=== PATIENT | female | born 1955 | race Caucasian/White ===

== ENCOUNTER 2016-11-17 09:18 | Outpatient (CLI) | payer OTHER ==
[2016-11-17 10:18] LABS: ALT (SGPT) 13 U/L (0-55); AST (SGOT) 16 U/L (5-34); Albumin 4.6 g/dL (3.4-4.8); Alkaline Phosphatase 50 U/L (40-150); Anion Gap 16 mmol/L (10-20); BUN (Urea Nitrogen) 10 mg/dL (9.8-20.1); Bilirubin, Direct 0.1 mg/dL (0.1-0.3); Bilirubin, Total 0.3 mg/dL (0.2-1.2); Calc. Creatinine Clearance 0 mL/min (70-130); Calcium 10.3 mg/dL (7.8-10.44); Carbon Dioxide 27 mmol/L (23-31); Cardiac Risk 2.7 (Less than 4.5); Chloride 105 mmol/L (98-107); Cholesterol 163 mg/dL (< 200 Desired); Estimated GFR-MDRD 73; Glucose 107 mg/dL (80-115); HDL Cholesterol 60 mg/dL (>60 Neg Risk); LDL Cholesterol, Calculated 78 mg/dL; Potassium 4.4 mmol/L (3.5-5.1); Protein, Total 7.5 g/dL (5.8-8.1); Sodium 144 mmol/L (136-145); Triglycerides 125 mg/dL (Less than 150)
[2016-11-17 15:00] LABS: Mean Corpuscular HGB CONC 33.4 g/dL (32.0-36.0); Mean Corpuscular Hemoglobin 35.7 pg (27.0-31.0); Mean Platelet Volume 7.6 fL (7.4-10.4); Platelet Count 253 thou/uL (130-400); RBC Distribution Width 13.1 % (11.5-14.5); Red Blood Cell (RBC) Count 3.91 mill/uL (4.20-5.40)
[2016-11-17 15:03] LABS: Macrocytosis SLIGHT = 6-15 cells (100X) (0-5/hpf); PLT Morphology Comment Appears Adequate
== END 2016-11-17 09:19 | disposition home or self-care (01) ==
LOC: MADLABBHPM 09:18
PROVIDERS: ATTEND Family Medicine
DX: E03.9 Hypothyroidism, unspecified (principal); D75.89 Other specified diseases of blood and blood-forming organs; I10 Essential (primary) hypertension
CPT/HCPCS: 36415; 80048; 80061; 80076; 84443; 85025

== ENCOUNTER 2017-02-15 08:55 | Outpatient (CLI) | payer MEDICARE, OTHER ==
[2017-02-15 10:06] LABS: ALT (SGPT) 13 U/L (8-55); AST (SGOT) 15 U/L (5-34); Albumin 4.3 g/dL (3.4-4.8); Alkaline Phosphatase 49 U/L (40-150); Anion Gap 14 mmol/L (10-20); BUN (Urea Nitrogen) 7 mg/dL (9.8-20.1); Bilirubin, Direct 0.1 mg/dL (0.1-0.3); Bilirubin, Total 0.3 mg/dL (0.2-1.2); Calc. Creatinine Clearance 0 mL/min (70-130); Calcium 9.6 mg/dL (7.8-10.44); Carbon Dioxide 27 mmol/L (23-31); Cardiac Risk 2.6 (Less than 4.5); Chloride 103 mmol/L (98-107); Cholesterol 146 mg/dl (< 200 Desired); Estimated GFR-MDRD 79; Glucose 106 mg/dL (80-115); HDL Cholesterol 57 mg/dL (>60 Neg Risk); LDL Cholesterol, Calculated 68 mg/dL; Potassium 4.2 mmol/L (3.5-5.1); Protein, Total 7.4 g/dL (6.0-8.3); Sodium 140 mmol/L (136-145); Triglycerides 105 mg/dL (Less than 150)
[2017-02-15 10:48] LABS: #Monocytes 0.4 thou/uL (0.11-0.59); #Neutrophils 5.8 thou/uL (1.40-6.50); %Basophils 0.6 % (0.0-1.0); %Lymphocytes 24.5 % (21.0-51.0); %Monocytes 5.1 % (0.0-10.0); %Neutrophils 69.8 % (42.0-75.0); Hemoglobin 13.5 g/dL (12.0-16.0); Mean Corpuscular HGB CONC 33.7 g/dL (32.0-36.0); Mean Corpuscular Hemoglobin 35.1 pg (27.0-31.0); Mean Corpuscular Volume 104.1 fl (81.0-99.0); Mean Platelet Volume 8.2 fL (7.4-10.4); Platelet Count 260 thou/uL (130-400); RBC Distribution Width 13.2 % (11.5-14.5); Red Blood Cell (RBC) Count 3.84 mill/uL (4.20-5.40); White Blood Cell (WBC) Count 8.3 thou/uL (4.8-10.8)
[2017-02-15 11:11] LABS: Anisocytosis SLIGHT = 6-15 cells (100X) (0-5/hpf); MDiff Complete? YES; PLT Morphology Comment Appears Adequate
== END 2017-02-15 08:56 | disposition home or self-care (01) ==
LOC: MADLABBHPM 08:55
PROVIDERS: ATTEND Family Medicine
DX: E78.5 Hyperlipidemia, unspecified (principal); I10 Essential (primary) hypertension; D75.89 Other specified diseases of blood and blood-forming organs
CPT/HCPCS: 36415; 80048; 80061; 80076; 85025

== ENCOUNTER 2022-03-22 12:37 | Outpatient (CLI) | payer MEDICARE ==
[2022-03-22 16:13] LABS: Iron 19 ug/dL (50-170); Iron Binding Capacity, Total 524 mcg/dL (265-497)
== END 2022-03-22 12:38 | disposition home or self-care (01) ==
LOC: MADLABBHPM 12:37 → MADLAB 12:38
PROVIDERS: ATTEND Family Medicine
DX: D64.9 Anemia, unspecified (principal)
CPT/HCPCS: 82728; 83540; 83550

== ENCOUNTER 2023-10-28 11:27 | Emergency (ER) | payer MEDICARE ==
[~2023-10-28 11:27] MED LIST: Iopamidol 370 76% 100 ML VIAL ONE
[2023-10-28 13:32] LABS: #Lymphocytes 2.2 thou/uL (1.20-3.40); #Monocytes 0.7 thou/uL (0.11-0.59); #Neutrophils 5.7 thou/uL (1.40-6.50); %Basophils 0.5 % (0.0-1.0); %Lymphocytes 25.4 % (21.0-51.0); %Monocytes 7.7 % (0.0-10.0); %Neutrophils 66.4 % (42.0-75.0); Hematocrit 38.6 % (36.0-47.0); Hemoglobin 12.6 g/dL (12.0-16.0); Mean Corpuscular HGB CONC 32.6 g/dL (32.0-36.0); Mean Corpuscular Hemoglobin 31.6 pg (27.0-31.0); Mean Corpuscular Volume 96.9 fl (78.0-98.0); Mean Platelet Volume 8.8 fL (7.4-10.4); Platelet Count 361 10x3/uL (130-400); RBC Distribution Width 13.1 % (11.5-14.5); Red Blood Cell (RBC) Count 3.98 mill/uL (4.20-5.40); White Blood Cell (WBC) Count 8.5 10x3/uL (4.8-10.8)
[2023-10-28 13:51] LABS: ALT (SGPT) 24 U/L (8-55); AST (SGOT) 28 U/L (5-34); Albumin 4.5 g/dL (3.4-4.8); Alkaline Phosphatase 98 U/L (40-110); Anion Gap 20 mmol/L (10-20); BUN (Urea Nitrogen) 4 mg/dL (9.8-20.1); Bilirubin, Total 0.4 mg/dL (0.2-1.2); Calc. Creatinine Clearance 0 mL/min (70-130); Calcium 9.8 mg/dL (7.8-10.44); Carbon Dioxide 26 mmol/L (23-31); Chloride 87 mmol/L (98-107); Estimated GFR 95; Globulin 3.4 g/dL (2.4-3.5); Glucose 102 mg/dL (80-115); Lipase 25 U/L (8-78); Protein, Total 7.9 g/dL (5.8-8.1); Sodium 130 mmol/L (136-145)
[2023-10-28 13:58] LABS: Critical Call Chemistry NUR.RGK@1358; Potassium 2.6 mmol/L (3.5-5.1)
[2023-10-28 14:12] LABS: Magnesium 1.9 mg/dL (1.6-2.6)
[2023-10-28] MEDS ORDERED: Potassium Chloride 20 MEQ TAB ONE (14:13)
[2023-10-28] MEDS ORDERED: NS 0.9% w/ 20 MEQ KCL 2,000 ML ONE (14:13)
[2023-10-28 14:25] LABS: Bilirubin Negative (Negative); Blood, Urine Small (Negative); Clarity Clear (Clear); Glucose, Urine (Dipstick) Negative (Negative); Ketone, Urine Negative (Negative); Leukocyte Negative (Negative); Nitrite Negative (Negative); Protein, Urine (Dipstick) Negative (Neg-Trace); Urobilinogen 0.2 mg/dL (Less than 2); pH, Urine 6.5 (5.0-9.0)
[2023-10-28 14:35] LABS: Bacteria/HPF 2+ HPF (None Seen); CAUTI Indications for Culture Pelvic or flank pain; RBC/HPF 0-3 HPF (0-3); Squamous Epithelial 0-3 HPF (0-3); Urine Culture Reflex No No; WBC/HPF None Seen HPF (0-3)
[2023-10-29 15:02] LABS: Campy jejuni + coli by PCR Negative (Negative); STEC Shiga Toxin 1+2 Negative (Negative); Salmonella spp. by PCR Negative (Negative); Shigella spp + EIEC by PCR Negative (Negative)
== END 2023-10-28 18:54 | disposition home or self-care (01) ==
LOC: MADERS 11:27
DX: E87.6 Hypokalemia (principal); I70.0 Atherosclerosis of aorta; K57.30 Diverticulosis of large intestine without perforation or abscess without bleeding; E87.1 Hypo-osmolality and hyponatremia; I10 Essential (primary) hypertension; E03.9 Hypothyroidism, unspecified; F17.210 Nicotine dependence, cigarettes, uncomplicated; Z79.899 Other long term (current) drug therapy
CPT/HCPCS: 74177; 80053; 81001; 83690; 83735; 85025; 87324; 87449; 87505; 93005; 94760; 96365; 96366; J3480; Q9967